=== PATIENT | female | born 1965 | race Caucasian/White ===

== ENCOUNTER 2019-08-05 10:57 | Outpatient (CLI) | payer OTHER, SELFPAY ==
--- NOTE | 2019-08-05 | US_ITS ---
WS: [id number] RIGHT UPPER QUADRANT ULTRASOUND HISTORY: ELEVATED TRANSAMINASE LEVEL COMPARISON: 08/11/2017 Liver: 13.7 cm in length. Normal size liver with mild hepatic steatosis. No mass or bile duct dilatat ion. Gallbladder: Normally distended gallbladder with no stones or wall thickening. CBD: 0.2 cm Pancreas: Normal size and echogenicity. Right kidney: 9.9 cm in length. Normal echogenicity with no mass or hydronephrosis. Aorta and IVC: Unremarkable. No ascites. US/US liver [id number] IMPRESSION: 1. Normal gallbladder. 2. Mild hepatic steatosis.
== END 2019-08-05 10:58 | disposition home or self-care (01) ==
LOC: RADOUTREAD 13:28
PROVIDERS: Family Provider Internal Medicine; PCP Internal Medicine; Visit Provider Internal Medicine
DX: R74.0 Nonspecific elevation of levels of transaminase and lactic acid dehydrogenase [LDH] (principal); K76.0 Fatty (change of) liver, not elsewhere classified
CPT/HCPCS: 76705

== ENCOUNTER 2019-09-01 16:22 | Emergency (ER) | payer OTHER, SELFPAY ==
[2019-09-01 16:32] VITALS: BP 155/99; PULSE 95; RESP 14; TEMP 37.1; O2SAT 98; BMI 35.0
== END 2019-09-01 17:31 | disposition left against medical advice (07) ==
PROVIDERS: Emergency Provider Physician Assistant; PCP Internal Medicine
DX: Z53.21 Procedure and treatment not carried out due to patient leaving prior to being seen by health care provider (principal)
CPT/HCPCS: 99281